=== PATIENT | male | born 1985 | race Caucasian/White ===

== ENCOUNTER 2018-10-18 21:25 | Emergency (ER) | payer OTHER ==
[~2018-10-18] VITALS: Ht 190.5 cm; Wt 83.9 kg
[2018-10-18 21:36] VITALS: BP_SYST 128
--- NOTE | 2018-10-18 23:01 | NUR ---
Pt ambulatory to [facility] for evaluation
--- NOTE | 2018-10-18 23:04 | NUR ---
Pt complains of left knee swelling and pressure to area. Pt states he started to feel the pain yesterday Pt had gone to [place] two days ago with his kids and played in an obstacle course with them, crawling and running. Pt is unable recall if he hit his knee of scraped it. Noted bump with white center to knee. Pt states he thought it was a pimple, tried to pop it but nothing came out. Pt also tried to pop it but no discharge came out. No other injuries/complaints per patient or noted.
--- NOTE | 2018-10-18 23:28 | NUR ---
ER Dr. Aden at bedside examining patient.
[2018-10-18] MEDS ORDERED: SULFAMETHOXAZOLE/TRIMETHOPR DS 1 TABLET PO ONE (23:45)
[2018-10-18 23:55] VITALS: BP_SYST 124
--- NOTE | 2018-10-18 23:55 | NUR ---
Patient given written and verbal discharge instructions and verbalizes understanding. ER MD discussed with patient the results and treatment provided. Patient in stable condition. ID arm band removed. Rx of Bactrim given. Patient educated on pain management and to follow up with PMD. Pain Scale 0. Opportunity for questions provided and answered. Medication side effect fact sheet provided.
== END 2018-10-18 23:55 | disposition home or self-care (01) ==
LOC: EDBD 21:25 → SED 21:25
DX: L03.116 Cellulitis of left lower limb (principal)
CPT/HCPCS: 87070-TC; 87075-TC; 87186-TC; 99283

== ENCOUNTER 2018-10-21 15:45 | Emergency (ER) | payer OTHER ==
[~2018-10-21] VITALS: Ht 190.5 cm; Wt 83.9 kg
[2018-10-21 15:45] VITALS: BP_SYST 120
--- NOTE | 2018-10-21 15:45 | NUR ---
BROUGHT BACK TO BED #4 AND TRIAGED, REPORT GIVEN TO DELIO
--- NOTE | 2018-10-21 15:51 | NUR ---
DR RINCON TO BEDSIDE FOR EVALUATION
[2018-10-21] MEDS ORDERED: KETOROLAC TROMETHAMINE 30 MG VIAL IVP ONE (16:15)
[2018-10-21] MEDS ORDERED: CLINDAMYCIN 600 mg/50mL D5W 50 ML IV ONE ×2 (16:15→17:01)
[2018-10-21] MEDS ORDERED: NACL 0.9% 1,000 ML IV ONE (16:15)
--- NOTE | 2018-10-21 16:25 | NUR ---
Patient presented toER with C/o reddness & swelling to left lower leg. Patient A&Ox4, ambulatory to ER, small scap/bump to midline palomares below knee, reddnes with slight swelling to front of palomares. Patient states he was seen in [facility] ER thursday & given Bactrim ABX. Patient states he has taken 3 days of Bactrim but continues to feel discomfort from swelling on left lower leg. patient states pain is 4/10, denies N/V/D at this time.
[2018-10-21 17:14] LABS: CALCIUM 9.6 mg/dL (8.4-11.0); CREATININE 1.06 mg/dL (0.55-1.30); POTASSIUM 3.9 mmol/L (3.5-5.1)
[2018-10-21 17:19] LABS: ALBUMIN 3.9 g/dL (3.4-4.8); TOTAL BILIRUBIN 0.2 mg/dL (0.0-1.0)
[2018-10-21 17:27] LABS: RED BLOOD CELL COUNT(AUTO) 4.69 MIL/uL (4.2-6.2); WHITE BLOOD COUNT (AUTO) 8.5 K/uL (4.8-10.8)
[2018-10-21 17:28] LABS: BASOPHILS % (AUTO) 0.9 % (0.0-2.0); EOSINOPHILS # (AUTO) 0.2 K/uL (0.0-0.4); EOSINOPHILS % (AUTO) 2.9 % (0.0-4.0); HEMATOCRIT 42.7 % (36-54); HEMOGLOBIN 14.6 g/dL (14.0-18.0); LYMPHOCYTES # (AUTO) 1.5 K/uL (1.0-5.5); LYMPHOCYTES % (AUTO) 18.2 % (20.5-51.5); MEAN CORPUSCULAR HEMOGLOBIN 31 pg (27-31); MEAN CORPUSCULAR HGB CONC 34 % (32-36); MEAN CORPUSCULAR VOLUME 91 fL (79.0-98.0); MONOCYTES # (AUTO) 0.7 K/uL (0.0-1.0); MONOCYTES % (AUTO) 8.1 % (1.7-9.3); NEUTROPHILS % (AUTO) 69.9 % (40.0-70.0); PLATELET COUNT (AUTO) 281 K/uL (130-430); RED CELL DISTRIBUTION WIDTH 12.2 % (9.0-15.0)
[2018-10-21 17:29] LABS: BASOPHILS # (AUTO) 0.1 K/uL (0.0-0.2)
[2018-10-21 17:33] LABS: INR 0.9 (0.80-1.20); PROTHROMBIN TIME 9.5 SECS (9.5-12.5)
--- NOTE | 2018-10-21 17:56 | NUR ---
ER Dr. Griffiths at bedside discussing lab results with patient.
--- NOTE | 2018-10-21 18:30 | NUR ---
DR. RINCON AT BEDSIDE DISCUSSING DISCHARGE WITH PATIENT.
[2018-10-21 18:45] VITALS: BP_SYST 120
--- NOTE | 2018-10-21 18:45 | NUR ---
Patient given written and verbal discharge instructions and verbalizes understanding. ER MD discussed with patient the results and treatment provided. Patient in stable condition. ID arm band removed. IV catheter removed intact and dressing applied, no active bleeding. Rx of MOTRIN, CLINDAMYCIN, NORCO given. Patient educated on pain management and to follow up with PMD. Pain Scale 2/10 TOLERABLE FOR PT. Opportunity for questions provided and answered. Medication side effect fact sheet provided.
== END 2018-10-21 18:45 | disposition home or self-care (01) ==
LOC: SED 15:45
DX: L03.116 Cellulitis of left lower limb (principal); M25.562 Pain in left knee
CPT/HCPCS: 29505; 36415; 80053; 83605; 85025; 85610; 85730; 87040; 96365; 96375; 99283; J1885; J3490; J7030; J7060